=== PATIENT | male | born 1970 | race Caucasian/White ===

== ENCOUNTER 2020-07-23 11:19 | Outpatient (CLI) | payer OTHER ==
--- NOTE | 2020-07-23 13:17 | RAD ---
PA CHEST AND RIGHT RIBS 6 VIEWS: Date: 07/23/2020 HISTORY: Right-sided chest pain. FINDINGS: Lung mandujano appear clear. No pneumothorax or infiltrate. The right ribs appear unremarkable. No fracture or rib lesion identified. IMPRESSION: No acute findings. POS: OFF
== END 2020-07-23 11:20 | disposition home or self-care (01) ==
LOC: BICRAD 11:19
PROVIDERS: ATTEND Family Medicine
DX: R07.9 Chest pain, unspecified (principal)

== ENCOUNTER 2021-05-01 12:58 | Outpatient (CLI) | payer OTHER | END 2021-05-01 12:59 | disposition home or self-care (01) | LOC: BICULT 12:58 | PROVIDERS: ATTEND Family Medicine | DX: N50.89 Other specified disorders of the male genital organs (principal); N50.3 Cyst of epididymis | CPT/HCPCS: 76870; 93976 ==